=== PATIENT | female | born 1990 | race African-American/Black ===

== ENCOUNTER 2016-04-16 22:10 | Inpatient (IN) ==
[2016-04-16] MEDS ORDERED: MORPHINE 2 MG/1 ML SYRINGE IV STA (22:42)
[2016-04-16] MEDS ORDERED: ALUM/MAG/SIMETH/LIDO VISC 1:1 30 ML BOTTLE PO STA (22:42)
[2016-04-16] MEDS ORDERED: SODIUM CHLORIDE 0.9% 500 ML IV STA (22:42)
--- NOTE | 2016-04-16 22:45 | EKG Report ---
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
--- NOTE | 2016-04-16 22:54 | Emergency Department Note ---
Ghanshyam Roper Brooke, am scribing for, and in the presence of, Lee Tovar MD 22 :47. Guy Roper Charles R, MD, personally performed the services described in this documentation, ascribed by Karli Morrissey in my presence, and it is both accurate and complete 253 . Arrival - Arrival Chief Complaint: Chest Pain Stated Complaint: SOB, Chest pains, heart palputation ED Nursing Triage Note: PT AMBULATORY TO TRIAGE WITH COMPLAINTS CHEST PAINS AND FEELING LIKE SHE IS HAVING PALPATATIONS. STATES THAT SHE ALSO THINKS THAT HER HEART RATE HAS BEEN LOW AND THAT SHE HAS BEEN SOB FEELING. STATES THAT SYMPTOMS STARTED FIVE DAYS AGO. STATES THAT SHE WAS SEEN AT [facility] AND WAS GIVEN ACID REFLUX MEDICATION. STATES THAT SHE DELIVERED TWO WEEKS AGO AND [facility] T[facility] TO COME TO ER. PT IS IN NO DISTRESS AT TIME OF TRIAGE. Mode of Arrival: Stretcher Limitations: No Limitations Source: Patient, RN Notes Reviewed Time Seen by Provider: 04/16/16 22:39 - History of Present Illness HPI Narrative: Patient is a 25 year old female who presents to the ED with c/o bradycardia, chest pain, and SOB. Patient says these problems started about five days ago after she noticed her heart "fluttering." Patient says she then began monitoring her heart rate and says it has been running low. She says it got to 37 earlier today but was in the 40's during exam. Patient says she feels like she is going to pass out. She says the SOB is worsened with exertion and when laying flat. Patient denies having any calf pain. She has no medical problems. Patient just recently had a and is currently breast feeding. Patient does not smoke. Onset (ago): day(s) (5) Date of Last Menstrual Period: DELIVERED 2 WEEKS AGO Allergies/Adverse Reactions: Allergies Allergy/AdvReac Type Severity Reaction Status Date / Time aspirin Allergy Severe Swelling Verified 04/01/16 07:28 of Lip/Tongue/Throat Home Medications: Home Medications Medication Instructions Recorded Confirmed Type Ferrous Sulfate Tab [Feosol 325 mg PO BID #60 tablet 04/03/16 04/16/16 Rx Original Tab] HYDROcodone/ACETAMIN 5-325 [[place] 1 tablet PO Q4H PRN #30 tablet 04/03/16 Rx 5-325] Review of System - Review of System 12 point system: reviewed and no additional remarkable complaints except as stated - Review of System Constitutional: Absent: fever Respiratory: Present: other (SOB) Cardiovascular: Present: chest pain, other (bradycardia and heart "fluttering") . Absent: syncope (near syncope) Skin: Absent: rash Medical,Surgical,& Family Hx - Medical History Musculoskeletal: No history of: Amputation Reproductive: History of: Reproductive Problems (Took Clomid in May 2015) - Surgical History Abdominal Surgeries: Surgical HX of: Cholecystectomy (2010) Reproductive Surgeries: Surgical HX of;: Section Patient denies;: Hysterectomy - Family History Family History: Reports;: Family Diabetes, Family Heart Disease, Family Hypertension - Social History Smoking Status: Never smoker Frequency of Alcohol Use: None Type of Drug Use: None Exam Vital Signs: Vital Signs Temperature 98.6 F 04/16/16 22:22 Pulse Rate 41 L 04/16/16 23:47 Respiratory Rate 20 04/16/16 23:47 Blood Pressure 128/83 04/16/16 23:47 O2 Sat by Pulse Oximetry 100 04/16/16 23:47 - General General appearance: alert, in no apparent distress - Head Head exam: Present: atraumatic, normocephalic - Eye Eye exam: Present: normal appearance, PERRL, EOMI - ENT ENT exam: Present: normal exam - Neck Neck exam: Present: normal inspection - Chest Chest inspection: Present: normal inspection, symmetric chest wall rise - Respiratory Respiratory exam: Present: normal lung sounds bilaterally - Cardiovascular Cardiovascular exam: Present: normal rhythm, bradycardia, normal heart sounds - Abdominal Exam Abdominal exam: Present: soft, other (post abdomen). Absent: distention , tenderness - Extremities Exam Extremities exam: Present: normal inspection - Back Exam Back exam: Present: normal inspection - Neurological Exam Neurological exam: Present: alert, oriented X3 - Psychiatric Psychiatric exam: Present: normal affect, normal mood - Skin Skin exam: Present: warm, dry, intact, normal color Course - Consultations Consultation #1: Dr. Flanagan will admit patient Time: 00:18 Results - Labs CBC & BMP: 04/16/16 22:32 04/16/16 22:32 Lab Results: I have reviewed the patients labs Labs: Laboratory Tests 04/16/16 22:32 Hgb 10.4 L Hct 33.2 L MCV 85.1 L MCHC 31.3 L MPV 12.3 H Laboratory Tests 04/16/16 04/16/16 22:32 23:01 Sodium 148 H Chloride 111 H Creatinine 1.10 H Calcium 8.2 L Albumin 3.0 L Albumin/Globulin Ratio 0.8 L Urine Urobilinogen < 2.0 H Urine Leukocytes Large H Laboratory Tests 04/16/16 22:32 B-Natriuretic Peptide 235 H Critical Care Time Critical Care Time: Yes Total Critical Care Time: 60 Disposition Clinical Impression: Chest pain, S/P repeat low transverse , Symptomatic bradycardia, Exertional dyspnea, Near syncope, , UTI (urinary tract infection) Case discussed with: patient, patient's family Disposition: Still a Patient Condition: Stable Time of Disposition: 00:18
[2016-04-16 23:01] LABS: Basophils # 0.1 10*3/uL (0.0-0.2); Basophils % 0.8 % (0.0-0.8); Eosinophils # 0.2 10*3/uL (0.0-0.87); Eosinophils % 2.8 % (0.00-10.9); Hematocrit 33.2 VOL% (35.7-47.0); Hemoglobin 10.4 GM/DL (12.0-16.0); Immature Granulocytes % 0.3 %; Immature Granulocytes Absolute 0.02 #; Lymphocytes # 3.4 10*3/uL (1.4-4.0); Lymphocytes % 44.6 % (21.3-54.2); Mean Corpuscular HGB Conc 31.3 GM/DL (32-36); Mean Corpuscular Hemoglobin 27 PG (27-34); Mean Corpuscular Volume 85.1 FL (87-102); Mean Platelet Volume 12.3 FL (9.6-12.0); Monocytes # 0.6 10*3/uL (0.11-0.8); Monocytes % 7.5 % (1.7-12.7); Neutrophils # 3.3 10*3/uL (1.4-7.4); Platelet Count 188 T/CUMM (130-400); Red Cell Distribution Width 13.9 % (9.3-17.3); White Blood Count 7.5 T/CUMM (4-12)
[2016-04-16 23:09] LABS: Apearance,Urine Slightly Hazy (Clear); Bilirubin,Urine Negative (Negative); Blood, Urine Moderate mg/dL (Negative); Glucose,Urine (UA) Negative (Negative); Ketones,Urine Negative (Negative); Mucus,Urine Occasional /LPF (Occasional); Nitrite,Urine Negative (Negative); Protein,Urine Negative; RBC,Urine 3 /HPF (0-4); Squamous Epithelial Cell,Urine Occasional /HPF (0-10); Transitional Epi Cells,Urine Occasional /HPF (<1); Urine Color Yellow (Yellow); Urine Urobilinogen < 2.0 EU/DL (0.2-1.0); WBC,Urine 41 /HPF (0-6)
[2016-04-16 23:10] LABS: Bacteria,Urine Few /HPF (Few)
[2016-04-16] MEDS ORDERED: ONDANSETRON 4 MG/2 ML VIAL ONE (23:10)
[2016-04-16] MEDS ORDERED: MORPHINE 2 MG/1 ML SYRINGE ONE (23:10)
[2016-04-16] MEDS ORDERED: ALUM/MAG/SIMETH/LIDO VISC 1:1 30 ML BOTTLE PO ONE (23:11)
[2016-04-16 23:12] LABS: D-Dimer 1.7 MG/L FEU; INR 1.1; PT Patient Result 11.2 SECS
[2016-04-16 23:13] LABS: Barbiturates Screen,Urine Negative (Negative); Benzodiazepines Screen,Urine Negative (Negative); Cannabinoid Screen,Urine Negative (Negative); Opiate Screen,Urine Negative (Negative); Phencyclidine Screen,Urine Negative (Negative)
[2016-04-16] MEDS: ONDANSETRON 4 MG/2 ML VIAL IV STA (23:16)
[2016-04-16 23:19] LABS: Bilirubin,Total 0.4 MG/DL (0.2-1.0); Calcium 8.2 MG/DL (8.5-10.1); Magnesium 2.2 MG/DL (1.8-2.4); Osmolality,Calculated 291.3 MOS/KG (273-304); Potassium 3.6 MMOL/L (3.5-5.1); Total Protein 6.5 G/DL (6.4-8.3)
[2016-04-16] MEDS ORDERED: cefTRIAXone 1,000 MG in SODIUM CHLORIDE 0.9% 100 ML IV STA (23:32)
[2016-04-16] MEDS ORDERED: cefTRIAXone 1,000 MG VIAL ONE (23:39)
--- NOTE | 2016-04-17 00:43 | Hospitalist History & Physical ---
Assessment and Plan (1) S/P repeat low transverse Status: Acute Current Visit: Yes (2) Symptomatic bradycardia Status: Acute Current Visit: Yes (3) Exertional dyspnea Status: Acute Current Visit: Yes (4) UTI (urinary tract infection) Status: Acute Assessment and plan: Plan for this patient #1 admit the patient to CCU #2 consult cardiology #3 treat her urinary tract infection Current Visit: Yes History of Present Illness Chief complaint: palpitations History of present illness: Ms. Santoyo is a 25 year old female with past medical history significant for anemia and status post delivery 2 weeks ago came to our ER tonight. She says she feels like her heart is been fluttering and she's felt short of breath. She says that she's been the developing a chest pain she describes as tight and sharp and radiates to her back. She has no diaphoresis. She was checking her pulse at home noted that her pulse got his lowest 39. She came up to our hospital for further evaluation I was consulted to admit her. Upon reviewing of the recent visits to the doctor she went recently to the ER in [place] and got IV Nexium and was discharged with Prilosec. But she says that she has taken Prilosec off and on for years. Home Medications Medication Instructions Recorded Confirmed Type Ferrous Sulfate Tab [Feosol 325 mg PO BID #60 tablet 04/03/16 04/16/16 Rx Original Tab] HYDROcodone/ACETAMIN 5-325 [[place] 1 tablet PO Q4H PRN #30 tablet 04/03/16 Rx 5-325] Allergies Allergy/AdvReac Type Severity Reaction Status Date / Time aspirin Allergy Severe Swelling Verified 04/01/16 07:28 of Lip/Tongue/Throat Medical,Surgical,& Family Hx - Medical History Musculoskeletal: No history of: Amputation Reproductive: History of: Reproductive Problems (Took Clomid in May 2015) - Surgical History Abdominal Surgeries: Surgical HX of: Cholecystectomy (2010) Reproductive Surgeries: Surgical HX of;: Section Patient denies;: Hysterectomy - Family History Family History: Reports;: Family Diabetes, Family Heart Disease, Family Hypertension - Social History Smoking Status: Never smoker Frequency of Alcohol Use: None Type of Drug Use: None 12 point system: reviewed and no additional remarkable complaints except as stated Exam - Constitutional Vitals: Period Temp Pulse Resp BP Sys/Mena Pulse Ox Last 24 Hr 98.6 F-98.6 F 41-45 18-20 128-149/60-86 98-100 General appearance: morbidly obese - Head Head exam: Present: normal inspection - Eye Eye exam: Present: EOMI Pupils: Present: FRANCK - ENT ENT exam: Present: normal exam - Neck Neck exam: Present: normal inspection - Respiratory Respiratory exam: Present: clear to auscultation bilaterally - GI/Abdominal GI/Abdominal exam: Present: normal bowel sounds - Extremities Exam Extremities exam: Present: normal inspection - Back Exam Back exam: Present: normal inspection - Neurological Exam Neurological exam: Present: alert - Psychiatric Psychiatric exam: Present: normal affect, normal mood - Skin Skin exam: Present: normal color Results - Labs CBC & BMP: 04/16/16 22:32 04/16/16 22:32
[2016-04-17] MEDS ORDERED: ONDANSETRON 4 MG/2 ML VIAL IV PRN (00:48)
[2016-04-17] MEDS ORDERED: ALBUTEROL 2.5 MG/3 ML NEB RESP TX PRN (00:48)
[2016-04-17] MEDS ORDERED: ZALEPLON 5 MG CAPSULE PO PRN (00:48)
[2016-04-17] MEDS ORDERED: ACETAMINOPHEN 325 MG TABLET PO PRN (00:48)
[2016-04-17 01:15] LABS: Free T4 (Free Thyroxine) 1.21 NG/DL (0.76-1.46); Thyroid Stimulating Hormone 4.6 uIU/ml (0.358-3.74)
[2016-04-17] MEDS: ONDANSETRON 4 MG/2 ML VIAL IV STA (02:37)
[2016-04-17 07:30] LABS: Bilirubin,Total 0.4 MG/DL (0.2-1.0); Calcium 8.3 MG/DL (8.5-10.1); Osmolality,Calculated 288.4 MOS/KG (273-304); Potassium 3.6 MMOL/L (3.5-5.1); Total Protein 6.5 G/DL (6.4-8.3)
--- NOTE | 2016-04-17 07:34 | Cardiology Consult Note ---
Assessment and Plan (1) Bradycardia by electrocardiography Status: Acute Assessment and plan: This patient's rhythm is sinus bradycardia and we will transfer her to the floor for further observation. Current Visit: Yes (2) Palpitations Status: Acute Assessment and plan: I think she is feeling PACs. We have not seen anything further at this point to suggest she has pathologic arrhythmias. Current Visit: Yes (3) Chest pain Status: Acute Assessment and plan: Her chest pain is atypical her EKG is normal and her troponins are negative Current Visit: Yes History of Present Illness - Consult Narrative Reason for consult: Bradycardia with palpitations History of present illness: Ms. Santoyo is a 25 year old female who has a history of anemia. She delivered a baby 2 weeks ago without complication. She presents now with chest discomfort and palpitations with bradycardia. She does not give me a history of problems related to orthopnea PND or edema. She has had chest discomfort which is atypical. She has exertional limitation I think primarily related to deconditioning. Serial troponins were negative for evidence of myocardial ischemia/infarction. She is admitted now with chest discomfort for evaluation. She has a family history of premature heart disease. She is an ex-smoker. Her blood pressures have been elevated here. CC: Tana Olguin MD - Home Medications and Allergies Home Medications: Home Medications Medication Instructions Recorded Confirmed Type Ferrous Sulfate Tab [Feosol 325 mg PO BID #60 tablet 04/03/16 04/16/16 Rx Original Tab] HYDROcodone/ACETAMIN 5-325 [[place] 1 tablet PO Q4H PRN #30 tablet 04/03/16 Rx 5-325] Allergies/Adverse Reactions: Allergies Allergy/AdvReac Type Severity Reaction Status Date / Time aspirin Allergy Severe Swelling Verified 04/01/16 07:28 of Lip/Tongue/Throat Medical,Surgical,& Family Hx - Medical History Gastrointestinal: History of: GERD Musculoskeletal: No history of: Amputation Reproductive: History of: Reproductive Problems (Took Clomid in May 2015) - Surgical History Thoracic Surgeries: Patient denies;: Organ Transplant, Lobectomy Abdominal Surgeries: Surgical HX of: Cholecystectomy (2010) Reproductive Surgeries: Surgical HX of;: Section (04/01/2016) Patient denies;: Genitourinary Surgery, Hysterectomy - Family History Family History: Reports;: Family Diabetes, Family Heart Disease, Family Hypertension - Social History Smoking Status: Former smoker Frequency of Alcohol Use: None Type of Drug Use: None Physical Examination Vital Signs Temp Pulse Resp BP Pulse Ox 98.6 F 45 L 18 149/86 98 04/16/16 22:22 04/16/16 22:22 04/16/16 22:22 04/16/16 22:22 04/16/16 22:22 Other: Physical examination: General: The patient is awake and alert and oriented -3. Mood and affect are normal. HEENT: Normocephalic, sclera are clear there are no lid xanthelasmas noted. Oral mucosa is free of cyanosis or pallor. Neck: The neck is supple without JVD. Carotid upstrokes are normal volume and amplitude. There is no audible bruit. There is no palpable thyroid. Trachea is midline. Chest: Lungs: The patient is comfortable at rest without intercostal retractions or abdominal breathing. There are no adventitial sounds rales rubs rhonchi or wheezes noted. Cardiovascular: The PMI is nondisplaced. No palpable thrill S3 or S4. There is a regular rate and rhythm with no murmur rub or gallop noted. Dorsalis pedis posterior tibial and femoral pulses are 2+ and equal bilaterally. Abdomen: Abdomen is soft and nontender with normal active bowel sounds. There is no palpable mass or organomegaly noted. There is no midline bruit. Extremities exam: There is no cyanosis clubbing or edema. Skin: Skin is warm and dry without ecchymosis or urticaria or skin rash. There are no palpable nodules. Musculoskeletal: There is no kyphosis or scoliosis noted. Result/EKG - Labs CBC & BMP: 04/16/16 22:32 04/16/16 22:32 Labs: Laboratory Results - last 24 hr 04/17/16 04/17/16 01:37 05:31 Troponin I < 0.015 < 0.015 - EKG EKG results: interpreted by me (Sinus rhythm within normal limits heart rate 44 bpm)
--- NOTE | 2016-04-17 07:41 | CT Report ---
CT chest pulmonary embolism Indication: Chest pain, shortness of breath Comparison: None available Technique: Axial CT imaging of the chest is performed with intravenous contrast. Contrast dose is 80 cc of Omnipaque 350. Findings: No thrombus or other abnormality is identified in the pulmonary arteries or veins. The pulmonary vessel caliber is within normal limits. The heart, mediastinum and great vessels appear within normal limits. There is narrowing of the left subclavian vein with filling of multiple collaterals. Small amount of increased density are seen in the right upper lobe most prominent in the inferior aspect. Remaining pulmonary parenchyma shows no evidence of airspace disease or abnormal density. No effusion or pneumothorax is present. Impression: No evidence of pulmonary thromboembolism . Small amount of increased density right upper lobe, could indicate previous infection. Left subclavian vein stenosis. PROCEDURE INTERPRETED AT [facility] DEPARTMENT OF RADIOLOGY Final Report Signed by: Dr. Prasad Krishna
[2016-04-17] MEDS: ENOXAPARIN 40 MG/0.4 ML SYRINGE SUBCUT SCH (08:36)
[2016-04-17] MEDS: PANTOPRAZOLE 40 MG TABLET PO SCH (08:36)
[2016-04-17] MEDS: FERROUS SULFATE 325 MG TABLET PO SCH ×2 (08:36→21:07)
--- NOTE | 2016-04-17 08:45 | XRay Report ---
XR chest 1V portable Indication: Chest pain Comparison: None available Findings: The heart and mediastinum are normal in size and configuration. The pulmonary vascularity is normal in caliber. No lung infiltrates, effusions, pneumothorax or other abnormality is demonstrated. Impression: Normal chest x-ray PROCEDURE INTERPRETED AT [facility] DEPARTMENT OF RADIOLOGY Final Report Signed by: Dr. Prasad Krishna
--- NOTE | 2016-04-17 12:00 | Hospitalist Progress Note ---
Assessment and Plan (1) Symptomatic bradycardia Status: Acute Assessment and plan: May be due to his sleep apnea, needs outpatient sleep study. Current Visit: Yes (2) Hypertension Status: Acute Assessment and plan: Norvasc 5 mg, echo Current Visit: Yes (3) UTI (urinary tract infection) Status: Acute Assessment and plan: Rocephin IV Current Visit: Yes Hospitalist: Subjective Interval history: Spoke with Dr. Orta about this case. Her bradycardia could be secondary to sleep apnea. She does have obesity. She does need outpatient sleep study. She is relatively asymptomatic at this time. We will transfer her to telemetry. She is 2 weeks and still has lochia. Dr. Orta has plan to order a echocardiogram to look for dilated cardiomyopathy. 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 Exam - Constitutional Vitals: Period Temp Pulse Resp BP Sys/Mena Pulse Ox Last 24 Hr 98.4 F-98.6 F 40-49 14-20 132-165/67-100 98-100 Exam: Heart Rate-[bradycardia] Lungs-[CTAB] GI-[+bs soft, NT] Ext-[no edema] Neuro [Motor 5/5], [alert and oriented times 3] psych [normal mood and affect] General [no acute distress] Results - Labs CBC & BMP: 04/16/16 22:32 04/17/16 07:05 Lab Results: I have reviewed the past 24 hour labs Labs: Potassium a little low, magnesium normal, TSH unremarkable - Diagnostic Findings Procedure: Chest x-ray: report reviewed by me (Normal), CT - chest: report reviewed by me (No PE)
[2016-04-17] MEDS ORDERED: POTASSIUM CHLORIDE 20 MEQ TABLET PO ONE (12:01)
[2016-04-17] MEDS: cefTRIAXone 1,000 MG in SODIUM CHLORIDE 0.9% 100 ML IV SCH (12:15)
--- NOTE | 2016-04-17 12:35 | ECHO Report ---
Dilia Santoyo Exam Date: 04/17/2016 09:56 Referring Physician: Technologist: James GAO Age: 25 Ht (in): Wt (lb): Gender: F Exam Location: [facility] Echo Indications: palp, UTI, near syncope, s/p C section, chest pain, bradycardia BP: / HR: Rhythm: Sinus Technical Quality: Fair IMPRESSIONS Mild concentric left ventricular hypertrophy. Left ventricular ejection fraction is estimated at 50-55 %. Moderately increased right ventricular size. Normal right atrial size. Moderately increased left atrial diameter. Mildly thickened mitral valve with mild mitral regurgitation. Aortic valve sclerosis without stenosis or regurgitation. Morphologically normal tricuspid valve. Moderate tricuspid valve regurgitation. Tricuspid regurgitation velocities suggest a PAP of 26.8 mmHg + RAP. Morphologically normal pulmonic valve. No pericardial effusion. Normal size aortic root and proximal ascending aorta. MEASUREMENTS (Male / Female) Normal Values 2D ECHO LV Diastolic Diameter PLAX 4.3 cm 4.2 - 5.9 / 3.9 - 5.3 cm LV Systolic Diameter PLAX 3.1 cm LV Fractional Shortening PLAX 28.1 % IVS Diastolic Thickness 1.3 cm 0.6 - 1.0 / 0.6 - 0.9 cm LVPW Diastolic Thickness 1.3 cm 0.6 - 1.0 / 0.6 - 0.9 cm RV Internal Dim ED PLAX 3.0 cm Aortic Root Diameter 2.6 cm LA Systolic Diameter LX 4.5 cm 3.0 - 4.0 / 2.7 - 3.8 cm DOPPLER TR Peak Velocity 259.0 cm/s TR Peak Gradient 26.8 mmHg FINDINGS Left Ventricle Mild concentric left ventricular hypertrophy. Left ventricular ejection fraction is estimated at 50-55 %. Right Ventricle Moderately increased right ventricular size. Right Atrium Normal right atrial size. Left Atrium Moderately increased left atrial diameter. Mitral Valve Mildly thickened mitral valve with mild mitral regurgitation. Aortic Valve Aortic valve sclerosis without stenosis or regurgitation. Tricuspid Valve Morphologically normal tricuspid valve. Moderate tricuspid valve regurgitation. Tricuspid regurgitation velocities suggest a PAP of 26.8 mmHg + RAP. Pulmonic Valve Morphologically normal pulmonic valve. Pericardium No pericardial effusion.+ pleural effusion. Aorta Normal size aortic root and proximal ascending aorta. Deondre Orta MD (Electronically Signed) Final Date: 17 April 2016 12:34
[2016-04-17] MEDS: amLODIPine 5 MG TABLET PO SCH (16:17)
[2016-04-18] MEDS: PANTOPRAZOLE 40 MG TABLET PO SCH (08:57)
[2016-04-18] MEDS: ENOXAPARIN 40 MG/0.4 ML SYRINGE SUBCUT SCH (08:57)
[2016-04-18] MEDS: FERROUS SULFATE 325 MG TABLET PO SCH (08:57)
[2016-04-18] MEDS: amLODIPine 5 MG TABLET PO SCH (08:57)
--- NOTE | 2016-04-18 10:28 | Cardiology Progress Note ---
Assessment and Plan (1) Bradycardia by electrocardiography Status: Acute Assessment and plan: This patient's rhythm is sinus bradycardia and we will transfer her to the floor for further observation. 04/18: This patient has asymptomatic bradycardia and we will get stress testing to be sure that she has chronotropic competence at some point in the near future. I do not think anything further needs to be done currently. Current Visit: Yes (2) Palpitations Status: Acute Assessment and plan: I think she is feeling PACs. We have not seen anything further at this point to suggest she has pathologic arrhythmias. Current Visit: Yes (3) Chest pain Status: Acute Assessment and plan: Her chest pain is atypical her EKG is normal and her troponins are negative Current Visit: Yes Cardiology - PN: Subj Interval history: This patient has normal LV function by echocardiography does not have a cardiomyopathy. She has bradycardia arrhythmias which are probably normal for her and she has no symptoms and does not need anything further done about it at this point. If she has syncope she has been instructed to return for evaluation. Her blood pressure is up some and we are going to switch her Norvasc because of some concern related to and Norvasc which is pretty sketchy based on the literature. We will add hydralazine which likely is safer and follow her blood pressure. Exam (Progress Note) - Constitutional Vitals: Period Temp Pulse Resp BP Sys/Mena Pulse Ox Last 24 Hr 97.7 F-98.6 F 40-55 13-20 132-154/65-88 96-99 Exam: General:no acute distress. alert and oriented, mood and affect are normal HEENT: no new lesions, sclerae are clear, mouth and pharynx benign Neck: supple, trachea midline, no JVD noted Lungs: no rales ronchi or wheeze is noted. pt comfortable without accesory muscle use to assist with breathing CV: RRR no murmur rub or gallop is noted. Abd: soft and nontender, BSNA, no masses. Ext: no cyanosis, clubbing or edema Neuro: grossly intact without focal neurologic deficit. Result/EKG - Labs CBC & BMP: 04/16/16 22:32 04/17/16 07:05 Specialty Discharge - Follow Up or Referrals Follow up with: Ady Quezada MD [Primary Care Provider] - (F/u appt already scheduled for 04/19. Keep this appointment and make sure to discuss safe control methods. ) Deondre Orta MD [Physician] - 2 Weeks
--- NOTE | 2016-04-18 10:47 | Discharge Summary ---
Beryl Roper Cedric, PA, am scribing for, and in the presence of, Tana Olguin MD 10:34. Hospital Course - Hospital Course Hospital Course: Ms. Santoyo is a 25-year-old female with a history of anemia status 2 weeks who presented to the ER with chest discomfort, palpitations and bradycardia. She was admitted to the hospital medicine service 04/17/16 and subsequently placed in the telemetry unit. Cardiology was consulted, they performed an echocardiogram which showed increase in left atrial and right ventricle size and showed an ejection fraction of 50-55%. Her bradycardia is believed to be related to her sleep apnea for which she is being referred to sleep medicine. She continues to be bradycardic, however she is stable and ready for discharge today. She has a UTI and will need five days of ceftin. She will be discharged home to self and expected to follow-up with sleep medicine as well as her [employer] for care. Dr. Orta will see her in his office in 2 weeks. We will use hydralazine instead of norvasc as it is safer while breast feeding. Needs to use control with condom to avoid becoming again. - Time spent with patient Time with patient DS: Greater than 30 minutes Time spent discussing smoking cessation with patient: 3 to 10 minutes Specialty Discharge - Follow Up or Referrals Follow up with: Ady Quezaad MD [Primary Care Provider] - (F/u appt already scheduled for 04/19. Keep this appointment and make sure to discuss safe control methods. ) Deondre Orta MD [Physician] - 2 Weeks Discharge Plan - Discharge Data Disposition: Disch To Home/Self Care Condition at Discharge: Stable Discharge Diet: low salt diet Activity: resume usual activities as tolerated Hygiene: no restrictions Weight Bearing at Discharge: full weight bearing - Discharge Medications New Cefuroxime Tab [Ceftin] 250 mg PO BID #10 tablet hydrALAZINE TAB [Apresoline Tab] 50 mg PO TID #90 tablet Continue Ferrous Sulfate Tab [Feosol Original Tab] 325 mg PO BID #60 tablet HYDROcodone/ACETAMIN 5-325 [[place] 5-325] 1 tablet PO Q4H PRN #30 tablet PRN Reason: Pain Moderate (4-7) - Follow Up or Referral Follow Up: Ady Quezada MD [Primary Care Provider] - (F/u appt already scheduled for 04/19. Keep this appointment and make sure to discuss safe control methods. ) Deondre Orta MD [Physician] - 2 Weeks Jazmine Hamilton MD [Physician] - 2 Weeks (sleep evaluation, bradycardia ) - Forms/Instructions Instructions: Bradycardia (DC) Exam - Constitutional Vitals: Period Temp Pulse Resp BP Sys/Mena Pulse Ox Last 24 Hr 97.7 F-98.6 F 40-55 13-20 132-154/65-88 96-99 General appearance: normal weight, no acute distress - Respiratory Respiratory exam: Present: clear to auscultation bilaterally. Absent: wheezes - Cardiovascular Cardiovascular exam: Present: bradycardia - GI/Abdominal GI/Abdominal exam: Present: normal bowel sounds, soft. Absent: tenderness - Extremities Exam Extremities exam: Absent: edema Discharge Results Procedures and tests throughout hospitalization: Pending Orders 04/17/16 01:33 MRSA Surveillence, Inf Control Routine DS: Provider Consults: 04/17/16 08:51 Consult to Sleep Center [CONS] Routine Reason for Sleep Center: Sleep Center Physician Consult Comment: bradycardia, sleep evaluation Expected date of discharge: 04/18/16 Clau Roper Deanna R, MD, personally performed the services described in this documentation, ascribed by Hector Cordoba PA in my presence, and it is both accurate and complete [id number] .
--- NOTE | 2016-04-18 12:13 | XRay Report ---
XR chest post lung scan Indication: Shortness of breath Comparison: 16 April 2016 Findings: The heart and mediastinum are normal in size and configuration. The pulmonary vascularity is normal in caliber. No lung infiltrates, effusions, pneumothorax or other abnormality is demonstrated. Impression: Normal chest x-ray PROCEDURE INTERPRETED AT [facility] DEPARTMENT OF RADIOLOGY Final Report Signed by: Dr. Prasad Krishna
[2016-04-18] MEDS: cefTRIAXone 1,000 MG in SODIUM CHLORIDE 0.9% 100 ML IV SCH (12:16)
--- NOTE | 2016-04-18 12:19 | Nuclear Medicine Report ---
Nuclear medicine ventilation/perfusion scan Indication: Shortness of breath Findings: Ventilation scan: The patient received 40.0 mCi of 90 9M technetium DTPA aerosolized. There is normal distribution of radiotracer in both lungs. Perfusion scan: Patient received 5.0 mCi of 90 9M technetium MAA intravenously. There is normal in distribution of radiotracer in both lungs without evidence of segmental or greater defects. Impression: Normal nuclear medicine ventilation perfusion scan. This indicates low probability for pulmonary embolism. PROCEDURE INTERPRETED AT [facility] DEPARTMENT OF RADIOLOGY Final Report Signed by: Dr. Prasad Krishna
[2016-04-18 12:48] VITALS: BP 150/85
== END 2016-04-18 12:45 | disposition home or self-care (01) | DRG 781 ==
LOC: N.ED 22:10 → N.EDINP 04-17 00:48 → N.ICU 04-17 01:24 → N.TELEN 04-17 15:16
PROVIDERS: ADMIT Internal Medicine; ATTEND Internal Medicine

== ENCOUNTER 2018-09-15 08:00 | Inpatient (IN) ==
[2018-09-15] MEDS ORDERED: ceFAZolin 3,000 MG in SYRINGE 1 EACH IV ONE (10:59)
[2018-09-15] MEDS ORDERED: FAMOTIDINE 20 MG/2 ML VIAL IV ONE (10:59)
[2018-09-15] MEDS ORDERED: CITRIC ACID/SODIUM CITRATE 30 ML UDCUP PO ONE (10:59)
[2018-09-15] MEDS ORDERED: LACTATED RINGERS 1,000 ML IV SCH ×2 (11:00→15:30)
[2018-09-15 11:33] LABS: Basophils % 0.4 % (0.0-0.8); Eosinophils # 0.1 10*3/uL (0.0-0.87); Eosinophils % 0.7 % (0.00-10.9); Hematocrit 31.8 VOL% (35.7-47.0); Hemoglobin 10.1 GM/DL (12.0-16.0); Immature Granulocytes % 0.4 %; Immature Granulocytes Absolute 0.03 #; Lymphocytes # 1.8 10*3/uL (1.4-4.0); Lymphocytes % 22.1 % (21.3-54.2); Mean Corpuscular HGB Conc 31.8 GM/DL (32-36); Mean Corpuscular Volume 85.5 FL (87-102); Mean Platelet Volume 12.6 FL (9.6-12.0); Monocytes % 12.3 % (1.7-12.7); Neutrophils % 64.1 % (38.7-73.9); Platelet Count 180 T/CUMM (130-400); Red Blood Count 3.72 MC/CUMM (3.8-5.5); Red Cell Distribution Width 13.9 % (9.3-17.3); White Blood Count 8.3 T/CUMM (4-12)
[2018-09-15 11:40] LABS: Apearance,Urine CLOUDY (Clear); Bilirubin,Urine Negative (Negative); Blood, Urine Negative (Negative); Glucose,Urine (UA) Negative (Negative); Ketones,Urine Negative (Negative); Mucus,Urine Many /LPF (Occasional); Nitrite,Urine Negative (Negative); Protein,Urine 30 MG/DL; RBC,Urine 3 /HPF (0-4); Squamous Epithelial Cell,Urine Few /HPF (0-10); Urine Color Yellow (Yellow); Urine Specific Gravity 1.019 (1.001-1.035); Urine Urobilinogen < 2.0 EU/DL (0.2-1.0); WBC,Urine 2 /HPF (0-6)
[2018-09-15] MEDS ORDERED: SODIUM CHLORIDE 0.9% 100 ML IV ONE (12:05)
[2018-09-15] MEDS ORDERED: OXYTOCIN 10 UNIT/ML VIAL IM ONE (12:30)
[2018-09-15] MEDS ORDERED: OXYTOCIN/LR 30 UNIT/1,000 ML BAG IV ONE (12:30)
[2018-09-15] MEDS ORDERED: ONDANSETRON 4 MG/2 ML VIAL ONE (14:27)
[2018-09-15] MEDS ORDERED: FUROSEMIDE 40 MG/4 ML VIAL IV SCH (15:00)
[2018-09-15] MEDS ORDERED: ONDANSETRON 4 MG/2 ML VIAL IV PRN (15:02)
[2018-09-15] MEDS ORDERED: RHO(D) IMMUNE GLOBULIN 300 MCG SYRINGE IM ONE (15:02)
[2018-09-15] MEDS ORDERED: SIMETHICONE CHEW 80 MG TABLET PO PRN (15:02)
[2018-09-15] MEDS ORDERED: OXYTOCIN/LR 20 UNIT/1,000 ML BAG IV ONE (15:02)
[2018-09-15] MEDS ORDERED: ACETAMINOPHEN 325 MG TABLET PO PRN (15:02)
[2018-09-15] MEDS ORDERED: fentaNYL 100 MCG/2 ML VIAL ONE (15:36)
[2018-09-15] MEDS ORDERED: PROPOFOL 200 MG/20 ML VIAL IV ONE (15:36)
[2018-09-15] MEDS ORDERED: BUPIVACAINE 0.5% 50 ML VIAL ONE (15:36)
[2018-09-15] MEDS ORDERED: MIDAZOLAM 2 MG/2 ML VIAL ONE (15:36)
[2018-09-15] MEDS ORDERED: SUCCINYLCHOLINE 200 MG/10 ML VIAL ONE (15:37)
[2018-09-15] MEDS ORDERED: SEVOFLURANE 1 UNIT/15 MINUTE INH ONE (15:37)
[2018-09-15] MEDS ORDERED: HYDROmorphone 2 MG/1 ML VIAL IV ONE (15:46)
[2018-09-15 16:15] LABS: Cord Venous Blood PO2 42.1
[2018-09-15] MEDS ORDERED: HYDROmorphone 2 MG/1 ML VIAL IV PRN (17:02)
[2018-09-15 18:38] LABS: Hematocrit 30.2 VOL% (35.7-47.0); Hemoglobin 9.5 GM/DL (12.0-16.0)
[2018-09-15] MEDS: FUROSEMIDE 40 MG/4 ML VIAL IV SCH (18:43)
[2018-09-15 19:08] LABS: Alanine Aminotransferase 15 U/L (13-56); Albumin 2.9 G/DL (3.4-5.0); Alkaline Phosphatase 149 U/L (45-117); Aspartate Amino Transferase 22 U/L (0-37); Bilirubin,Total < 0.39 MG/DL (0.2-1.0); Blood Urea Nitrogen 6 MG/DL (7-18); Calcium 8.7 MG/DL (8.5-10.1); Glucose 68 MG/DL (74-106); Osmolality,Calculated 274.4 MOS/KG (273-304); Total Protein 7.2 G/DL (6.4-8.3)
[2018-09-15] MEDS: IBUPROFEN 800 MG TABLET PO PRN (20:09)
[2018-09-15] MEDS: FERROUS SULFATE 325 MG TABLET PO SCH (20:52)
[2018-09-15] MEDS: DOCUSATE SODIUM 100 MG CAPSULE PO SCH (20:52)
[2018-09-15] MEDS: ceFAZolin 1,000 MG in SYRINGE 1 EACH IV SCH (21:00)
[2018-09-16] MEDS: FUROSEMIDE 40 MG/4 ML VIAL IV SCH ×3 (00:31→12:41)
[2018-09-16] MEDS: IBUPROFEN 800 MG TABLET PO PRN ×2 (04:26→16:20)
[2018-09-16] MEDS: ceFAZolin 1,000 MG in SYRINGE 1 EACH IV SCH (05:03)
[2018-09-16 05:52] LABS: Basophils % 0.3 % (0.0-0.8); Hematocrit 25.7 VOL% (35.7-47.0); Hemoglobin 8.2 GM/DL (12.0-16.0); Immature Granulocytes % 0.5 %; Immature Granulocytes Absolute 0.06 #; Lymphocytes # 2.1 10*3/uL (1.4-4.0); Lymphocytes % 16.4 % (21.3-54.2); Mean Corpuscular HGB Conc 31.9 GM/DL (32-36); Mean Corpuscular Volume 84.8 FL (87-102); Mean Platelet Volume 11.9 FL (9.6-12.0); Monocytes % 7.9 % (1.7-12.7); Neutrophils % 74.9 % (38.7-73.9); Platelet Count 160 T/CUMM (130-400); Red Blood Count 3.03 MC/CUMM (3.8-5.5); Red Cell Distribution Width 13.9 % (9.3-17.3); White Blood Count 12.6 T/CUMM (4-12)
[2018-09-16] MEDS: POTASSIUM CHLORIDE 20 MEQ TABLET PO SCH ×3 (07:10→20:41)
[2018-09-16] MEDS: FERROUS SULFATE 325 MG TABLET PO SCH ×2 (09:53→20:39)
[2018-09-16] MEDS: DOCUSATE SODIUM 100 MG CAPSULE PO SCH ×2 (09:53→20:39)
[2018-09-16] MEDS: MAGNESIUM HYDROXIDE SUSP 30 ML UDCUP PO PRN (09:53)
[2018-09-16] MEDS: MULTIVITAMIN (PRENATAL) TABLET PO SCH (09:53)
[2018-09-16] MEDS: FUROSEMIDE 40 MG TABLET PO SCH ×2 (17:37→20:41)
[2018-09-17] MEDS: FUROSEMIDE 40 MG TABLET PO SCH ×3 (02:23→14:32)
[2018-09-17] MEDS: IBUPROFEN 800 MG TABLET PO PRN (06:17)
[2018-09-17] MEDS: POTASSIUM CHLORIDE 20 MEQ TABLET PO SCH (09:57)
[2018-09-17] MEDS: MULTIVITAMIN (PRENATAL) TABLET PO SCH (09:58)
[2018-09-17] MEDS: FERROUS SULFATE 325 MG TABLET PO SCH (09:58)
[2018-09-17] MEDS: DOCUSATE SODIUM 100 MG CAPSULE PO SCH (09:58)
[2018-09-17] MEDS: MAGNESIUM HYDROXIDE SUSP 30 ML UDCUP PO PRN (09:59)
[2018-09-17 11:27] VITALS: BP 128/66
== END 2018-09-17 14:45 | disposition home or self-care (01) | DRG 783 ==
LOC: N.LD 10:01 → N.OB 18:21
PROVIDERS: ADMIT Obstetrics & Gynecology; ATTEND Obstetrics & Gynecology
PROC: LDCSECT (ICD-10-PCS; 2018-09-15 08:15)